=== PATIENT | female | born 1975 | race Caucasian/White ===

== ENCOUNTER 2019-04-22 15:01 | Emergency (ER) | payer SELFPAY ==
[~2019-04-22] VITALS: Ht 162.6 cm; Wt 97.1 kg
[2019-04-22 15:09] VITALS: Ht 162.6 cm; Wt 97.1 kg
[2019-04-22 16:06] VITALS: BP 158/95
== END 2019-04-22 17:09 | disposition home or self-care (01) ==
LOC: ED 15:01
DX: N75.1 Abscess of Bartholin's gland (principal)
CPT/HCPCS: J2001